=== PATIENT | female | born 2000 | race Caucasian/White ===

== ENCOUNTER 2020-10-22 11:50 | Emergency (ER) | payer OTHER ==
[~2020-10-22 11:50] MED LIST: FLEXERIL 10 MG10 MG PO; IBUPROFEN600 MG PO; LODINE CAP 300300 MG PO; ZOFRAN ODT 4 MG4 MG SL
[2020-10-22 12:50] LABS: HEMOGLOBIN 12.5 gm/dl (12.3-15.3); RED BLOOD COUNT 4.24 M/UL (4.00-5.10); WHITE BLOOD COUNT 11.5 K/UL (4.5-11.0)
[2020-10-22 13:13] LABS: BUN/CREATININE RATIO 10 (0-10)
[2020-10-22] MEDS ORDERED: ZOFRAN4 MG PO (13:28)
== END 2020-10-22 13:32 | disposition home or self-care (01) ==
LOC: ER1 11:50
PROVIDERS: Physician Assistant
DX: R11.2 Nausea with vomiting, unspecified (principal); R42 Dizziness and giddiness
CPT/HCPCS: 36415; 80053; 81001; 84703; 85025; 96374; 99284; J2405

== ENCOUNTER → 2021-09-19 | Outpatient (CLI) | payer OTHER ==
[~2021-09-19] MED LIST changes: +ZOFRAN4 MG PO
== END ==
LOC: EROP 08:07
DX: Z20.822 Contact with and (suspected) exposure to COVID-19 (principal)
CPT/HCPCS: U0002

== ENCOUNTER → 2022-02-12 | Outpatient (CLI) | payer OTHER | LOC: LAB 11:57 | DX: N92.6 Irregular menstruation, unspecified (principal) | CPT/HCPCS: 84702 ==